=== PATIENT | female | born 1990 | race Caucasian/White ===

== ENCOUNTER 2017-12-14 11:19 | Day surgery (SDC) | payer SELFPAY ==
[2017-12-13 11:49] VITALS: BMI 21.7
[2017-12-14] MEDS ORDERED: ceFAZolin SODIUM 1 GM VIAL ONE ×2 (12:39→13:32)
[2017-12-14] MEDS ORDERED: GENTAMICIN SO4 80 MG/2 ML VIAL ONE (12:39)
[2017-12-14] MEDS ORDERED: MIDAZOLAM HCL 2 MG/2 ML SINGLE DOSE VIAL ONE (12:49)
[2017-12-14] MEDS ORDERED: PROPOFOL 20 ML ONE ×3 (12:50)
[2017-12-14] MEDS ORDERED: KETOROLAC TROMETHAMINE 30 MG/1 ML VIAL ONE (12:52)
[2017-12-14] MEDS ORDERED: DEXAMETHASONE SOD PHOSPHATE 4 MG/1 ML VIAL ONE ×2 (12:52→14:40)
[2017-12-14] MEDS ORDERED: ONDANSETRON 4 MG/2 ML VIAL ONE ×2 (12:52→14:40)
[2017-12-14] MEDS ORDERED: ROCURONIUM BROMIDE 50 MG/5 ML VIAL ONE (12:53)
[2017-12-14] MEDS ORDERED: ONDANSETRON 4 MG/2 ML VIAL IVPUSH PRN (13:00)
[2017-12-14] MEDS ORDERED: LACTATED RINGERS SOLUTION 1,000 ML IV SCH ×2 (13:00→15:15)
[2017-12-14] MEDS ORDERED: oxyCODONE HCL 5 MG TABLET PO PRN ×4 (13:00→15:15)
[2017-12-14] MEDS ORDERED: NEOSTIGMINE METHYLSULFATE 0.5 MG/ML - 10 ML MDV ONE (13:32)
[2017-12-14] MEDS ORDERED: METOPROLOL TARTRATE 5 MG/5 ML VIAL ONE (13:32)
[2017-12-14] MEDS ORDERED: SODIUM CHLORIDE 0.9% P/F 10 ML VIAL IJ ONE (13:32)
[2017-12-14] MEDS ORDERED: ONDANSETRON 4 MG/2 ML VIAL IVPB PRN (15:15)
--- NOTE | 2017-12-14 15:19 | OP ---
Operative Note - Note: Operative Date: 12/14/17 Pre-Operative Diagnosis: bilateral micromastia Operation: bilateral breast augmentation with silicone gel implants Findings: above Implants: mentor 300cc smooth round high profile implants Surgeon: Roger Daugherty Anesthesia: General Operative Report Dictated: Yes
[2017-12-14 15:30] VITALS: TEMP 98.2
[2017-12-14 16:58] VITALS: PULSE 86
[2017-12-14 18:04] VITALS: BP 112/61
--- NOTE | 2017-12-14 18:45 | OP ---
DATE OF OPERATION: 12/14/2017 TITLE OF PROCEDURE: Bilateral breast augmentation with silicone gel implants, smooth, round. ATTENDING SURGEON: Ellen Cox MD ASSISTANTS: None. ANESTHESIA: General endotracheal. Patient is marked in the holding area, awake and aware of all incisions and resulting scars. Bilateral inframammary incisions are planned. She is counseled on all risks, benefits, and alternatives of the procedure, understands, and agrees to proceed. She is given a gram of Ancef preoperatively. She is given NICK hose and sequential compression stockings in the holding area, brought to the operating room, placed in supine position. Position is carefully checked by surgical and anesthesia team. She is prepped and draped in standard surgical fashion. A double prep with Betadine scrub and ChloraPrep is used. Timeout is called. Patient, procedure, sites, and sides are verified. The left breast is addressed first. An inframammary incision is made. Dissection is carried down to the level of the pectoralis muscle. Pectoralis muscle is then elevated. A subpectoral plane is developed. Medial inferior fibers of the pectoralis major muscle are partially divided. A pocket is dissected. Hemostasis is achieved. Attention is then directed toward the contralateral side where a mirror image procedure is performed. The pockets are assessed to be identical in size and shape. At this point, gloves are changes. The wounds are irrigated with triple-antibiotic solution. Standard triple-antibiotic solution is used. A [place] 300-mL smooth, round, high profile implant is brought onto the field, and no-touch technique is used. The implant is rinsed in triple-antibiotic solution. Using a Finch funnel, the implant is oriented properly and placed into the pocket. It is manipulated to sit in the right position. The skin is tailor tacked with leny. The identical procedure is then performed on the contralateral side with the same style implant. Patient is brought to a seated, upright position, with the skin tailor tacked. Symmetry of size and shape is excellent. Patient is brought to a supine position once again, where closure is performed of the deep breast capsular tissue with a running 3-0 Monocryl suture. Deep dermis is approximated with a series of interrupted, buried, deep dermal, 3-0 Monocryl suture, and the skin is then closed with a running subcuticular 4-0 Monocryl suture. Several 6-0 nylon sutures are used to perfect the closure. This is performed bilaterally. Incisions dressed with Steri-Strips, 4 x 4 gauze, and a breast binder. The patient is awoken from anesthesia, having tolerated the procedure well, transferred to recovery without complication. ELLEN COX M.D. [id number]
== END 2017-12-14 17:40 | disposition home or self-care (01) ==
LOC: FASU 11:19
PROVIDERS: ATTEND Plastic Surgery
PROC: 0H0V0JZ Alteration of Bilateral Breast with Synthetic Substitute, Open Approach (ICD-10-PCS; principal; 2017-12-14 13:50)
DX: Z41.1 Encounter for cosmetic surgery (principal)
CPT/HCPCS: 84703; 94760